=== PATIENT | male | born 1935 | race Caucasian/White ===

== ENCOUNTER 2018-05-26 20:48 | Inpatient (IN) | payer MEDICARE, OTHER ==
[2018-05-26] MEDS ORDERED: Sodium Chloride 0.9% 10 ML Syringe FLUSH PRN (20:57)
[2018-05-26 21:34] LABS: CHLORIDE,CL 105 mEq/L (98-106); SODIUM,NA 141 mEq/L (136-145)
--- NOTE | 2018-05-26 22:55 | EDM.PDOC ---
ED HPI GENERAL MEDICAL PROBLEM - General Chief Complaint: General Stated Complaint: WEAKNESS Time Seen by Provider: 05/26/18 20:49 Source of Information: Reports: Patient, Family History Limitations: Reports: No Limitations - History of Present Illness INITIAL COMMENTS - FREE TEXT/NARRATIVE: patient presents in care of family with report of LEFT arm weakness as well as generalized fatigue. 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 He denies injury, other concerns or complaints. Onset: Gradual Onset Date: 05/22/18 Location: Reports: Upper Extremity, Left Quality: Reports: Other (weak) Context: Denies: Trauma Associated Symptoms: Reports: Weakness - Related Data Allergies Allergy/AdvReac Type Severity Reaction Status Date / Time Penicillins Allergy Hives Verified 05/26/18 21:06 Home Meds: Home Meds Aspirin [Halfprin] 81 mg PO DAILY 01/05/15 [History] Cholecalciferol (Vitamin D3) [Vitamin D3] 1,000 units PO DAILY 01/05/15 [History ] Cyanocobalamin (Vitamin B-12) [Vitamin B-12] 1 tab PO Q3D 01/05/15 [History] Furosemide [Lasix] 40 mg PO BID 01/05/15 [History] Losartan Potassium 100 mg PO DAILY 01/05/15 [History] Potassium Chloride [Klor-Con 10] 10 meq PO DAILY 01/05/15 [History] cloNIDine [Catapres] 0.1 mg PO BID 01/05/15 [History] Metoprolol Tartrate [Lopressor] 50 mg PO BID 04/06/16 [History] amLODIPine Besylate [Amlodipine Besylate] 5 mg PO DAILY 04/12/17 [History] atorvaSTATin Calcium [Atorvastatin Calcium] 20 mg PO DAILY 04/12/17 [History] Rivaroxaban [Xarelto] 20 mg PO DAILY 05/26/18 [History] Past Medical History HEENT History: Reports: Cataract, Hard of Hearing, Impaired Vision Cardiovascular History: Reports: Afib, Heart Failure, High Cholesterol, SOB on Exertion Respiratory History: Reports: SOB - Past Surgical History HEENT Surgical History: Reports: Cataract Surgery, Oral Surgery, Tonsillectomy Other HEENT Surgeries/Procedures: DENTURES Musculoskeletal Surgical History: Reports: Knee Replacement, Shoulder Surgery Other Musculoskeletal Surgeries/Procedures:: RIGHT SHOULDER SURGERY Social & Family History - Family History Family Medical History: Noncontributory - Caffeine Use Caffeine Use: Reports: Coffee, Soda, Tea - Recreational Drug Use Recreational Drug Use: No ED ROS GENERAL - Review of Systems Review Of Systems: See Below Constitutional: Reports: Weakness, Fatigue. Denies: Fever, Chills, Diaphoresis HEENT: Reports: No Symptoms Respiratory: Reports: Cough. Denies: Shortness of Breath, Wheezing Cardiovascular: Denies: Chest Pain, Edema, Syncope Endocrine: Reports: Fatigue. Denies: Polydypsia, Polyuria GI/Abdominal: Denies: Abdominal Pain, Diarrhea, Nausea, Vomiting : Denies: Dysuria, Flank Pain Musculoskeletal: Reports: Other (LEFT arm weakness). Denies: Neck Pain Skin: Denies: Cyanosis Neurological: Reports: Numbness, Weakness. Denies: Confusion, Dizziness, Headache, Seizure, Tremors (LEFT hand numbness) Psychiatric: Denies: Anxiety, Confusion ED EXAM, GENERAL - Physical Exam Exam: See Below Exam Limited By: No Limitations General Appearance: Alert, WD/WN, No Apparent Distress Eye Exam: Bilateral Eye: EOMI, PERRL Ears: Normal External Exam Nose: Normal Inspection Throat/Mouth: Normal Inspection, Normal Oropharynx, Normal Voice Head: Atraumatic, Normocephalic Neck: Normal Inspection, Supple, Non-Tender, Full Range of Motion Respiratory/Chest: No Respiratory Distress, Lungs Clear, Normal Breath Sounds, No Accessory Muscle Use, Chest Non-Tender Cardiovascular: Normal Peripheral Pulses, Regular Rate, Rhythm, No Gallop, No JVD, No Murmur, No Rub Peripheral Pulses: 2+: Radial (L), Radial (R) GI/Abdominal: Normal Bowel Sounds, Soft Back Exam: Normal Inspection, Full Range of Motion Extremities: Other (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 MSK otherwise without acute findings.) Neurological: Alert, Oriented, CN II-XII Intact, Normal Cognition, Normal Gait, Normal Reflexes, Sensory/Motor Deficit, Other (LEFT arm weak. Diminished sensation in LEFT hand) Psychiatric: Normal Affect, Normal Mood Skin Exam: Warm, Dry, Intact Lymphatic: No Adenopathy Course - Vital Signs Last Recorded V/S: Last Vital Signs Temp 36.6 C 05/26/18 20:51 Pulse 52 L 05/26/18 20:51 Resp 16 05/26/18 20:51 BP 119/73 05/26/18 20:51 Pulse Ox 99 05/26/18 20:51 - Orders/Labs/Meds Orders: Active Orders 24 hr Category Date Time Status Peripheral IV Care [RC] . DIRECTED Care 05/26/18 20:59 Active Chest 2V [CR] Stat Exams 05/26/18 20:57 Taken Head wo Cont [CT] Stat Exams 05/26/18 20:57 Taken Sodium Chloride 0.9% [Saline Flush] Med 05/26/18 20:57 Active 10 ml FLUSH ASDIRECTED PRN Peripheral IV Insertion Adult [OM.PC] Routine Oth 05/26/18 20:57 Ordered Medication Orders Sodium Chloride (Saline Flush) 10 ml FLUSH ASDIRECTED PRN PRN Reason: Keep Vein Open Labs: Laboratory Tests 05/26/18 05/26/18 05/26/18 Range/Units 21:10 21:10 21:10 WBC 8.1 (5.0-10.0) 10^3/uL RBC 4.41 L (4.50-6.00) 10^6/uL Hgb 13.4 L (14.0-18.0) g/dL Hct 40.3 (40.0-54.0) % MCV 91.4 (82.0-94.0) fL MCH 30.4 (27.0-32.0) pg MCHC 33.3 (33.0-38.0) g/dL RDW Coeff of [place] 14.6 (11.0-15.0) % Plt Count 234 (150-400) 10^3/uL Neut % (Auto) 59.4 (35-85) % Lymph % (Auto) 29.2 (10-55) % [place] % (Auto) 8.2 (0-16) % Eos % (Auto) 3.0 (0-5) % Baso % (Auto) 0.2 (0-3) % Neut # (Auto) 4.78 (1.80-7.00) 10^3/uL Lymph # (Auto) 2.35 (1.00-4.80) 10^3/uL [place] # (Auto) 0.66 (0.00-0.80) 10^3/uL Eos # (Auto) 0.24 (0.00-0.45) 10^3/uL Baso # (Auto) 0.02 10^3/uL PT 11.3 (9.7-12.3) SEC INR 1.09 (0.92-1.18) Sodium 141 (136-145) mEq/L Potassium 3.4 L (3.5-5.0) mEq/L Chloride 105 (98-106) mEq/L Carbon Dioxide 29 (21-32) mmol/L BUN 20 H (7-18) mg/dL Creatinine 1.1 (0.7-1.3) mg/dL Est Cr Clr Drug Dosing 54.19 mL/min Estimated GFR (MDRD) > 60 (>=60) mL/min Glucose 134 H (75-99) mg/dL Calcium 8.5 (8.4-10.1) mg/dL Troponin I < 0.017 (0.00-0.06) ng/mL Meds: Medications Generic Name Dose Route Start Last Admin Trade Name Freq PRN Reason Stop Dose Admin Sodium Chloride 10 ml 05/26/18 20:57 Saline Flush FLUSH ASDIRECTED PRN Keep Vein Open Departure - Departure Time of Disposition: 22:56 Disposition: Admitted As Inpatient 66 Condition: Good Clinical Impression: Weakness - Discharge Information *PRESCRIPTION DRUG MONITORING PROGRAM REVIEWED*: Not Applicable *COPY OF PRESCRIPTION DRUG MONITORING REPORT IN PATIENT ROX: Not Applicable - Problem List Review Problem List Initiated/Reviewed/Updated: Yes - My Orders Last 24 Hours: My Active Orders 05/26/18 20:57 Chest 2V [CR] Stat Head wo Cont [CT] Stat Sodium Chloride 0.9% [Saline Flush] 10 ml FLUSH ASDIRECTED PRN Peripheral IV Insertion Adult [OM.PC] Routine 05/26/18 20:59 Peripheral IV Care [RC] . DIRECTED - Assessment/Plan Admission H&P: Please use this note as an admission H&P Last 24 Hours: My Active Orders 05/26/18 20:57 Chest 2V [CR] Stat Head wo Cont [CT] Stat Sodium Chloride 0.9% [Saline Flush] 10 ml FLUSH ASDIRECTED PRN Peripheral IV Insertion Adult [OM.PC] Routine 05/26/18 20:59 Peripheral IV Care [RC] . DIRECTED Assessment:: Weakness Unclear etiology. CT of the head negative for acute pathology. Labs grossly WNL. EKG unchanged from previous. Will admit to observation for neuro checks and repeat exam. 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
[2018-05-26] MEDS ORDERED: Ondansetron 4 MG Tab.DIS PO PRN (23:35)
[2018-05-26] MEDS ORDERED: Acetaminophen/HYDROcodone 325-5 MG Tab PO PRN (23:35)
[2018-05-26] MEDS ORDERED: Acetaminophen 325 MG Tab PO PRN (23:35)
[2018-05-27] MEDS ORDERED: CLONIDINE 0.1 MG PO SCH (08:00)
[2018-05-27] MEDS ORDERED: amLODIPine 2.5 MG Tab PO SCH (08:00)
[2018-05-27] MEDS ORDERED: Non-Formulary Medication 1 Each (Rivaroxaban [Xarelto] 20 MG) PO SCH (08:00)
[2018-05-27] MEDS ORDERED: Cephalexin 250 MG Cap PO SCH (08:00)
[2018-05-27] MEDS: **PTOM** Losartan 100 MG Tab PO SCH (09:20)
[2018-05-27] MEDS: **PTOM** Furosemide 40 MG Tab PO SCH ×2 (09:20→15:52)
[2018-05-27] MEDS: **PTOM** Metoprolol Tartrate 50 MG Tab PO SCH ×2 (09:21→20:31)
[2018-05-27] MEDS: AMLODIPINE 5 MG PO SCH (09:21)
[2018-05-27] MEDS: CYANOCOBALAMIN 500 MCG PO SCH (09:21)
[2018-05-27] MEDS: Apixaban 5 MG Tab PO SCH (09:26)
[2018-05-27] MEDS: atorvaSTATin 20 MG Tab PO SCH (09:27)
[2018-05-27] MEDS: Aspirin 81 MG Tab.EC PO SCH (09:27)
[2018-05-27] MEDS: Cholecalciferol (Vitamin D3) 1,000 Unit Tab PO SCH (09:28)
[2018-05-27] MEDS: Potassium Chloride 10 MEQ Tab.ER PO SCH (09:28)
[2018-05-27] MEDS: cefTRIAXone 1 GM Vial IVPUSH SCH (09:43)
--- NOTE | 2018-05-27 17:40 | PCM.PN ---
- General Info Date of Service: 05/27/18 Admission Dx/Problem (Free Text): Weakness Functional Status: Reports: Pain Controlled, Tolerating Diet. Denies: Ambulating - Review of Systems General: Reports: Weakness, Fatigue. Denies: Fever HEENT: Reports: No Symptoms Pulmonary: Denies: Shortness of Breath, Cough Cardiovascular: Denies: Chest Pain, Edema, Lightheadedness Gastrointestinal: Denies: Abdominal Pain, Nausea, Vomiting Genitourinary: Denies: Dysuria Musculoskeletal: Reports: No Symptoms Skin: Reports: No Symptoms Neurological: Reports: Weakness. Denies: Confusion, Dizziness, Headache, Change in Speech, Gait Disturbance - Patient Data Vitals - Most Recent: Last Vital Signs Temp 96.4 F 05/27/18 16:00 Pulse 61 05/27/18 16:00 Resp 20 05/27/18 16:00 BP 150/92 H 05/27/18 16:00 Pulse Ox 97 05/27/18 16:00 Weight - Most Recent: 251 lb 5.231 oz Lab Results Last 24 Hours: Laboratory Results - last 24 hr 05/26/18 05/26/18 05/26/18 Range/Units 21:10 21:10 21:10 WBC 8.1 (5.0-10.0) 10^3/uL RBC 4.41 L (4.50-6.00) 10^6/uL Hgb 13.4 L (14.0-18.0) g/dL Hct 40.3 (40.0-54.0) % MCV 91.4 (82.0-94.0) fL MCH 30.4 (27.0-32.0) pg MCHC 33.3 (33.0-38.0) g/dL RDW Coeff of [place] 14.6 (11.0-15.0) % Plt Count 234 (150-400) 10^3/uL Neut % (Auto) 59.4 (35-85) % Lymph % (Auto) 29.2 (10-55) % [place] % (Auto) 8.2 (0-16) % Eos % (Auto) 3.0 (0-5) % Baso % (Auto) 0.2 (0-3) % Neut # (Auto) 4.78 (1.80-7.00) 10^3/uL Lymph # (Auto) 2.35 (1.00-4.80) 10^3/uL [place] # (Auto) 0.66 (0.00-0.80) 10^3/uL Eos # (Auto) 0.24 (0.00-0.45) 10^3/uL Baso # (Auto) 0.02 10^3/uL PT 11.3 (9.7-12.3) SEC INR 1.09 (0.92-1.18) Sodium 141 (136-145) mEq/L Potassium 3.4 L (3.5-5.0) mEq/L Chloride 105 (98-106) mEq/L Carbon Dioxide 29 (21-32) mmol/L BUN 20 H (7-18) mg/dL Creatinine 1.1 (0.7-1.3) mg/dL Est Cr Clr Drug Dosing 54.19 mL/min Estimated GFR (MDRD) > 60 (>=60) mL/min Glucose 134 H (75-99) mg/dL Calcium 8.5 (8.4-10.1) mg/dL Troponin I < 0.017 (0.00-0.06) ng/mL Urine Color (YELLOW) Urine Appearance (CLEAR) Urine pH (4.5-8.0) Ur Specific [place] (1.003-1.020) Urine Protein (NEGATIVE) mg/dL Urine Glucose (UA) (NEGATIVE) mg/dL Urine Ketones (NEGATIVE) mg/dL Urine Occult Blood (NEGATIVE) Urine Nitrite (NEGATIVE) Urine Bilirubin (NEGATIVE) Urine Urobilinogen (0.2-1.0) EU/dL Ur Leukocyte Esterase (NEGATIVE) Urine RBC (0-5) /HPF Urine WBC (0-5) /HPF Urine Bacteria (NOT SEEN) /HPF 05/27/18 Range/Units 03:10 WBC (5.0-10.0) 10^3/uL RBC (4.50-6.00) 10^6/uL Hgb (14.0-18.0) g/dL Hct (40.0-54.0) % MCV (82.0-94.0) fL MCH (27.0-32.0) pg MCHC (33.0-38.0) g/dL RDW Coeff of [place] (11.0-15.0) % Plt Count (150-400) 10^3/uL Neut % (Auto) (35-85) % Lymph % (Auto) (10-55) % [place] % (Auto) (0-16) % Eos % (Auto) (0-5) % Baso % (Auto) (0-3) % Neut # (Auto) (1.80-7.00) 10^3/uL Lymph # (Auto) (1.00-4.80) 10^3/uL [place] # (Auto) (0.00-0.80) 10^3/uL Eos # (Auto) (0.00-0.45) 10^3/uL Baso # (Auto) 10^3/uL PT (9.7-12.3) SEC INR (0.92-1.18) Sodium (136-145) mEq/L Potassium (3.5-5.0) mEq/L Chloride (98-106) mEq/L Carbon Dioxide (21-32) mmol/L BUN (7-18) mg/dL Creatinine (0.7-1.3) mg/dL Est Cr Clr Drug Dosing mL/min Estimated GFR (MDRD) (>=60) mL/min Glucose (75-99) mg/dL Calcium (8.4-10.1) mg/dL Troponin I (0.00-0.06) ng/mL Urine Color Yellow (YELLOW) Urine Appearance Cloudy (CLEAR) Urine pH 5.5 (4.5-8.0) Ur Specific [place] 1.015 (1.003-1.020) Urine Protein Negative (NEGATIVE) mg/dL Urine Glucose (UA) Negative (NEGATIVE) mg/dL Urine Ketones Negative (NEGATIVE) mg/dL Urine Occult Blood Trace-intact H (NEGATIVE) Urine Nitrite Positive H (NEGATIVE) Urine Bilirubin Negative (NEGATIVE) Urine Urobilinogen 0.2 (0.2-1.0) EU/dL Ur Leukocyte Esterase Moderate H (NEGATIVE) Urine RBC 0-5 (0-5) /HPF Urine WBC 30-40 H (0-5) /HPF Urine Bacteria Few H (NOT SEEN) /HPF Med Orders - Current: Current Medications Acetaminophen (Tylenol) 650 mg PO Q4H PRN PRN Reason: Pain (Mild 1-3)/fever Hydrocodone Bitart/Acetaminophen ([place] 325-5 Mg) 1 tab PO Q4H PRN PRN Reason: Pain (moderate 4-6) Apixaban (Eliquis) 5 mg PO DAILY [facility] Last Admin: 05/27/18 09:26 Dose: 5 mg Aspirin (Halfprin) 81 mg PO DAILY [facility] Last Admin: 05/27/18 09:27 Dose: 81 mg Atorvastatin Calcium (Lipitor) 20 mg PO DAILY [facility] Last Admin: 05/27/18 09:27 Dose: 20 mg Ceftriaxone Sodium (Rocephin) 1 gm IVPUSH DAILY [facility] Last Admin: 05/27/18 09:43 Dose: 1 gm Cholecalciferol (Vitamin D3) 1,000 units PO DAILY [facility] Last Admin: 05/27/18 09:28 Dose: 1,000 units Furosemide (Lasix) 40 mg PO BIDDIURETIC [facility] Last Admin: 05/27/18 15:52 Dose: 40 mg Losartan Potassium (Cozaar) 100 mg PO DAILY [facility] Last Admin: 05/27/18 09:20 Dose: 100 mg Metoprolol Tartrate (Lopressor) 50 mg PO BID [facility] Last Admin: 05/27/18 09:21 Dose: 50 mg Ptom Cyanocobalamin ( Vitamin B-12) 500 Mcg 1 tab PO Q3D [facility] Last Admin: 05/27/18 09:21 Dose: 1 tab Ptom Amlodipine (5mg Tab) 5 mg PO DAILY [facility] Last Admin: 05/27/18 09:21 Dose: 5 mg Ondansetron HCl (Zofran Odt) 4 mg PO Q4H PRN PRN Reason: nausea, able to take PO Potassium Chloride (Klor-Con 10) 10 meq PO DAILY [facility] Last Admin: 05/27/18 09:28 Dose: 10 meq Sodium Chloride (Saline Flush) 10 ml FLUSH ASDIRECTED PRN PRN Reason: Keep Vein Open Discontinued Medications Amlodipine Besylate (Norvasc) 5 mg PO DAILY [facility] Last Admin: 05/27/18 09:49 Dose: Not Given Cephalexin (Keflex) 500 mg PO BID [facility] Stop: 05/31/18 23:59 Last Admin: 05/27/18 09:49 Dose: Not Given Clonidine HCl (Catapres) 0.1 mg PO BID [facility] Last Admin: 05/27/18 09:49 Dose: Not Given Non-Formulary Medication (Rivaroxaban [Xarelto]) 20 mg PO DAILY [facility] Last Admin: 05/27/18 09:49 Dose: Not Given - Exam General: Alert, Oriented HEENT: Mucous Membr. Moist/[place] Neck: Supple Lungs: Clear to Auscultation, Normal Respiratory Effort Cardiovascular: Regular Rate, Regular Rhythm GI/Abdominal Exam: Normal Bowel Sounds, Soft, Non-Tender Extremities: Normal Inspection, Pedal Edema (trace in lower extremities) Skin: Warm, Dry Neurological: Other (patient is alert, answers questions appropriately. Speech is clear. Left arm is weak. Legs have equal strength. ) - Problem List & Annotations (1) UTI (urinary tract infection) SNOMED Code(s): 61419534 Code(s): N39.0 - URINARY TRACT INFECTION, SITE NOT SPECIFIED Status: Acute Priority: High Current Visit: Yes (2) Weakness SNOMED Code(s): 97125615 Code(s): R53.1 - WEAKNESS Status: Acute Priority: High Current Visit: Yes - Problem List Review Problem List Initiated/Reviewed/Updated: Yes - My Orders Last 24 Hours: My Active Orders 05/27/18 09:15 Apixaban [Eliquis] 5 mg PO DAILY cefTRIAXone [Rocephin] 1 gm IVPUSH DAILY 05/27/18 09:37 Brain wo Cont [MR] Routine - Assessment Assessment:: Weakness UTI - Plan Plan:: Patient states feels arm is stronger than yesterday but for being is dominant arm, still notes weakness. He answers all questions appropriately. Gait is unchanged. Denies burning with urination. UA positive, had been started on Keflex yesterday. Also noted in meds, had stopped taking his Xarelto and Atorvastatin, questions if taking Clonidine as in his med pack although medicine was discontinued in March. Patient unsure of any of his meds when asked. CT scan in ER was negative. Labs relatively stable except UA. Will switch oral Keflex to Rocephin. Start Eliquis while here. Hold the Clonidine. Obtain MRI tomorrow. Repeat labs in am.
[2018-05-28 07:29] LABS: CHLORIDE,CL 106 mEq/L (98-106); SODIUM,NA 144 mEq/L (136-145)
[2018-05-28] MEDS: **PTOM** Metoprolol Tartrate 50 MG Tab PO SCH ×2 (08:18→19:48)
[2018-05-28] MEDS: **PTOM** Furosemide 40 MG Tab PO SCH ×2 (08:19→16:50)
[2018-05-28] MEDS: AMLODIPINE 5 MG PO SCH (08:19)
[2018-05-28] MEDS: **PTOM** Losartan 100 MG Tab PO SCH (08:20)
[2018-05-28] MEDS: cefTRIAXone 1 GM Vial IVPUSH SCH (08:35)
[2018-05-28] MEDS: Aspirin 81 MG Tab.EC PO SCH (08:36)
[2018-05-28] MEDS: Apixaban 5 MG Tab PO SCH (08:36)
[2018-05-28] MEDS: Potassium Chloride 10 MEQ Tab.ER PO SCH (08:36)
[2018-05-28] MEDS: atorvaSTATin 20 MG Tab PO SCH (08:36)
[2018-05-28] MEDS: Cholecalciferol (Vitamin D3) 1,000 Unit Tab PO SCH (08:36)
--- NOTE | 2018-05-28 09:07 | PCM.PN ---
- General Info Date of Service: 05/28/18 Admission Dx/Problem (Free Text): Weakness Functional Status: Reports: Pain Controlled, Tolerating Diet, Ambulating - Review of Systems General: Reports: Weakness. Denies: Fever HEENT: Reports: No Symptoms Pulmonary: Denies: Shortness of Breath, Cough Cardiovascular: Denies: Chest Pain, Edema, Lightheadedness Gastrointestinal: Denies: Abdominal Pain, Nausea, Vomiting Genitourinary: Reports: No Symptoms Musculoskeletal: Reports: No Symptoms Skin: Reports: No Symptoms Neurological: Reports: Weakness, Gait Disturbance (unsteady gait) - Patient Data Vitals - Most Recent: Last Vital Signs Temp 97.6 F 05/28/18 07:26 Pulse 66 05/28/18 08:18 Resp 20 05/28/18 07:26 BP 146/86 H 05/28/18 08:20 Pulse Ox 96 05/28/18 07:26 Weight - Most Recent: 251 lb 5.231 oz Lab Results Last 24 Hours: Laboratory Results - last 24 hr 05/28/18 05/28/18 Range/Units 06:55 06:55 WBC 9.4 (5.0-10.0) 10^3/uL RBC 4.55 (4.50-6.00) 10^6/uL Hgb 13.8 L (14.0-18.0) g/dL Hct 41.7 (40.0-54.0) % MCV 91.6 (82.0-94.0) fL MCH 30.3 (27.0-32.0) pg MCHC 33.1 (33.0-38.0) g/dL RDW Coeff of [place] 14.4 (11.0-15.0) % Plt Count 254 (150-400) 10^3/uL Neut % (Auto) 56.8 (35-85) % Lymph % (Auto) 30.1 (10-55) % [place] % (Auto) 9.7 (0-16) % Eos % (Auto) 3.2 (0-5) % Baso % (Auto) 0.2 (0-3) % Neut # (Auto) 5.35 (1.80-7.00) 10^3/uL Lymph # (Auto) 2.84 (1.00-4.80) 10^3/uL [place] # (Auto) 0.91 H (0.00-0.80) 10^3/uL Eos # (Auto) 0.30 (0.00-0.45) 10^3/uL Baso # (Auto) 0.02 10^3/uL Sodium 144 (136-145) mEq/L Potassium 3.2 L (3.5-5.0) mEq/L Chloride 106 (98-106) mEq/L Carbon Dioxide 31 (21-32) mmol/L BUN 15 (7-18) mg/dL Creatinine 1.1 (0.7-1.3) mg/dL Est Cr Clr Drug Dosing 54.19 mL/min Estimated GFR (MDRD) > 60 (>=60) mL/min Glucose 104 H (75-99) mg/dL Calcium 8.5 (8.4-10.1) mg/dL C-Reactive Protein 0.9 H (0.2-0.8) mg/dL Med Orders - Current: Current Medications Acetaminophen (Tylenol) 650 mg PO Q4H PRN PRN Reason: Pain (Mild 1-3)/fever Hydrocodone Bitart/Acetaminophen ([place] 325-5 Mg) 1 tab PO Q4H PRN PRN Reason: Pain (moderate 4-6) Apixaban (Eliquis) 5 mg PO DAILY [facility] Last Admin: 05/28/18 08:36 Dose: 5 mg Aspirin (Halfprin) 81 mg PO DAILY [facility] Last Admin: 05/28/18 08:36 Dose: 81 mg Atorvastatin Calcium (Lipitor) 20 mg PO DAILY [facility] Last Admin: 05/28/18 08:36 Dose: 20 mg Ceftriaxone Sodium (Rocephin) 1 gm IVPUSH DAILY [facility] Last Admin: 05/28/18 08:35 Dose: 1 gm Cholecalciferol (Vitamin D3) 1,000 units PO DAILY [facility] Last Admin: 05/28/18 08:36 Dose: 1,000 units Furosemide (Lasix) 40 mg PO BIDDIURETIC [facility] Last Admin: 05/28/18 08:19 Dose: 40 mg Losartan Potassium (Cozaar) 100 mg PO DAILY [facility] Last Admin: 05/28/18 08:20 Dose: 100 mg Metoprolol Tartrate (Lopressor) 50 mg PO BID [facility] Last Admin: 05/28/18 08:18 Dose: 50 mg Ptom Cyanocobalamin ( Vitamin B-12) 500 Mcg 1 tab PO Q3D [facility] Last Admin: 05/27/18 09:21 Dose: 1 tab Ptom Amlodipine (5mg Tab) 5 mg PO DAILY [facility] Last Admin: 05/28/18 08:19 Dose: 5 mg Ondansetron HCl (Zofran Odt) 4 mg PO Q4H PRN PRN Reason: nausea, able to take PO Potassium Chloride (Klor-Con 10) 10 meq PO DAILY [facility] Last Admin: 05/28/18 08:36 Dose: 10 meq Sodium Chloride (Saline Flush) 10 ml FLUSH ASDIRECTED PRN PRN Reason: Keep Vein Open Discontinued Medications Amlodipine Besylate (Norvasc) 5 mg PO DAILY [facility] Last Admin: 05/27/18 09:49 Dose: Not Given Cephalexin (Keflex) 500 mg PO BID [facility] Stop: 05/31/18 23:59 Last Admin: 05/27/18 09:49 Dose: Not Given Clonidine HCl (Catapres) 0.1 mg PO BID [facility] Last Admin: 05/27/18 09:49 Dose: Not Given Non-Formulary Medication (Rivaroxaban [Xarelto]) 20 mg PO DAILY [facility] Last Admin: 05/27/18 09:49 Dose: Not Given - Exam General: Alert, Oriented HEENT: Mucous Membr. Moist/[place] Neck: Supple Lungs: Clear to Auscultation, Normal Respiratory Effort Cardiovascular: Regular Rate, Regular Rhythm GI/Abdominal Exam: Normal Bowel Sounds, Soft, Non-Tender Extremities: Normal Inspection, Other (weakness in left arm, decreased palmar grasp) Skin: Warm, Dry Neurological: No: Normal Gait, Strength Equal Bilateral - Problem List & Annotations (1) UTI (urinary tract infection) SNOMED Code(s): 31180361 Code(s): N39.0 - URINARY TRACT INFECTION, SITE NOT SPECIFIED Status: Acute Priority: High Current Visit: Yes (2) Weakness SNOMED Code(s): 13510707 Code(s): R53.1 - WEAKNESS Status: Acute Priority: High Current Visit: Yes (3) CVA (cerebral vascular accident) SNOMED Code(s): 085454199 Code(s): I63.9 - CEREBRAL INFARCTION, UNSPECIFIED Status: Acute Priority : High Current Visit: Yes - Problem List Review Problem List Initiated/Reviewed/Updated: Yes - My Orders Last 24 Hours: My Active Orders 05/27/18 09:15 Apixaban [Eliquis] 5 mg PO DAILY cefTRIAXone [Rocephin] 1 gm IVPUSH DAILY 05/28/18 09:00 Consult to Physical Therapy [PT Evaluation and Treatment] [CONS] Routine 05/28/18 09:37 Brain wo Cont [MR] Routine - Assessment Assessment:: Weakness UTI - Plan Plan:: Patient states feels arm is stronger than yesterday but for being is dominant arm, still notes weakness. He answers all questions appropriately. Gait is unchanged. Denies burning with urination. UA positive, had been started on Keflex yesterday. Also noted in meds, had stopped taking his Xarelto and Atorvastatin, questions if taking Clonidine as in his med pack although medicine was discontinued in March. Patient unsure of any of his meds when asked. CT scan in ER was negative. Labs relatively stable except UA. Will switch oral Keflex to Rocephin. Start Eliquis while here. Hold the Clonidine. Obtain MRI tomorrow. Repeat labs in am. 05-28-2018 Patient feels good today, left arm does still remain weak. Is using it more today per patient. Staff reports balance is unsteady when ambulating short distances. Denies dysphagia. No abdominal pain or burning with urination. Vitals stable. Potassium low at 3.2 today, CRP 0.9, WBC within normal limits at 9.4. Will transfer to acute inpatient for CVA. Continue Rocephin for UTI. PT to consult for strengthening and balance. MRI today.
[2018-05-29] MEDS: Apixaban 5 MG Tab PO SCH (07:47)
[2018-05-29] MEDS: **PTOM** Losartan 100 MG Tab PO SCH (07:47)
[2018-05-29] MEDS: Potassium Chloride 10 MEQ Tab.ER PO SCH (07:47)
[2018-05-29] MEDS: Aspirin 81 MG Tab.EC PO SCH (07:47)
[2018-05-29] MEDS: **PTOM** Metoprolol Tartrate 50 MG Tab PO SCH ×2 (07:48→19:46)
[2018-05-29] MEDS: **PTOM** Furosemide 40 MG Tab PO SCH ×2 (07:48→15:56)
[2018-05-29] MEDS: atorvaSTATin 20 MG Tab PO SCH (07:48)
[2018-05-29] MEDS: Cholecalciferol (Vitamin D3) 1,000 Unit Tab PO SCH (07:49)
[2018-05-29] MEDS: cefTRIAXone 1 GM Vial IVPUSH SCH (07:49)
[2018-05-29] MEDS: AMLODIPINE 5 MG PO SCH (07:58)
[2018-05-29] MEDS ORDERED: Iopamidol 755 Mg/ML 100 ML Bottle IVPUSH ONE (11:56)
[2018-05-29] MEDS: Ciprofloxacin 0.3% Ophth Soln 5 ML Bottle EYERT SCH ×2 (13:28→19:46)
--- NOTE | 2018-05-29 17:12 | PCM.PN ---
- General Info Date of Service: 05/29/18 Admission Dx/Problem (Free Text): Weakness Functional Status: Reports: Pain Controlled, Tolerating Diet, Ambulating - Review of Systems General: Reports: Weakness. Denies: Fever HEENT: Reports: No Symptoms Pulmonary: Denies: Shortness of Breath, Cough Cardiovascular: Denies: Chest Pain, Lightheadedness Gastrointestinal: Denies: Abdominal Pain, Nausea, Vomiting Genitourinary: Reports: No Symptoms Musculoskeletal: Reports: No Symptoms Skin: Reports: No Symptoms Neurological: Reports: No Symptoms - Patient Data Vitals - Most Recent: Last Vital Signs Temp 98.2 F 05/29/18 15:46 Pulse 70 05/29/18 15:46 Resp 18 05/29/18 15:46 BP 126/83 05/29/18 15:46 Pulse Ox 97 05/29/18 15:46 Weight - Most Recent: 251 lb 5.231 oz Conor Results Last 24 Hours: Microbiology 05/27/18 03:10 Urine Culture - Final Urine, Voided Med Orders - Current: Current Medications Acetaminophen (Tylenol) 650 mg PO Q4H PRN PRN Reason: Pain (Mild 1-3)/fever Hydrocodone Bitart/Acetaminophen ([place] 325-5 Mg) 1 tab PO Q4H PRN PRN Reason: Pain (moderate 4-6) Apixaban (Eliquis) 5 mg PO DAILY [facility] Last Admin: 05/29/18 07:47 Dose: 5 mg Aspirin (Halfprin) 81 mg PO DAILY [facility] Last Admin: 05/29/18 07:47 Dose: 81 mg Atorvastatin Calcium (Lipitor) 20 mg PO DAILY [facility] Last Admin: 05/29/18 07:48 Dose: 20 mg Ceftriaxone Sodium (Rocephin) 1 gm IVPUSH DAILY [facility] Last Admin: 05/29/18 07:49 Dose: 1 gm Cholecalciferol (Vitamin D3) 1,000 units PO DAILY [facility] Last Admin: 05/29/18 07:49 Dose: 1,000 units Ciprofloxacin (Ciloxan 0.3% Ophth Soln) 0 ml EYERT TID [facility] Last Admin: 05/29/18 13:28 Dose: 3 drop Furosemide (Lasix) 40 mg PO BIDDIURETIC [facility] Last Admin: 05/29/18 15:56 Dose: 40 mg Losartan Potassium (Cozaar) 100 mg PO DAILY [facility] Last Admin: 05/29/18 07:47 Dose: 100 mg Metoprolol Tartrate (Lopressor) 50 mg PO BID [facility] Last Admin: 05/29/18 07:48 Dose: 50 mg Ptom Cyanocobalamin ( Vitamin B-12) 500 Mcg 1 tab PO Q3D [facility] Last Admin: 05/27/18 09:21 Dose: 1 tab Ptom Amlodipine (5mg Tab) 5 mg PO DAILY [facility] Last Admin: 05/29/18 07:58 Dose: 5 mg Ondansetron HCl (Zofran Odt) 4 mg PO Q4H PRN PRN Reason: nausea, able to take PO Potassium Chloride (Klor-Con 10) 10 meq PO DAILY [facility] Last Admin: 05/29/18 07:47 Dose: 10 meq Sodium Chloride (Saline Flush) 10 ml FLUSH ASDIRECTED PRN PRN Reason: Keep Vein Open Discontinued Medications Amlodipine Besylate (Norvasc) 5 mg PO DAILY [facility] Last Admin: 05/27/18 09:49 Dose: Not Given Cephalexin (Keflex) 500 mg PO BID [facility] Stop: 05/31/18 23:59 Last Admin: 05/27/18 09:49 Dose: Not Given Clonidine HCl (Catapres) 0.1 mg PO BID [facility] Last Admin: 05/27/18 09:49 Dose: Not Given Iopamidol (Isovue-370 (76%)) 100 ml IVPUSH ONETIME ONE Stop: 05/29/18 11:57 Last Admin: 05/29/18 15:08 Dose: Not Given Non-Formulary Medication (Rivaroxaban [Xarelto]) 20 mg PO DAILY [facility] Last Admin: 05/27/18 09:49 Dose: Not Given - Exam General: Alert, Oriented HEENT: Mucous Membr. Moist/[place] Neck: Supple Lungs: Clear to Auscultation, Normal Respiratory Effort Cardiovascular: Regular Rate, Regular Rhythm GI/Abdominal Exam: Normal Bowel Sounds, Soft, Non-Tender Extremities: Normal Inspection, Other (weakness yet remains in left arm. Is ambulating with walker today with PT, does well.) Skin: Warm, Dry Neurological: No New Focal Deficit - Problem List & Annotations (1) UTI (urinary tract infection) SNOMED Code(s): 49551501 Code(s): N39.0 - URINARY TRACT INFECTION, SITE NOT SPECIFIED Status: Acute Priority: High Current Visit: Yes (2) Weakness SNOMED Code(s): 33486696 Code(s): R53.1 - WEAKNESS Status: Acute Priority: High Current Visit: Yes (3) CVA (cerebral vascular accident) SNOMED Code(s): 717922380 Code(s): I63.9 - CEREBRAL INFARCTION, UNSPECIFIED Status: Acute Priority : High Current Visit: Yes Qualifiers: CVA mechanism: embolism Precerebral and cerebral artery: basilar artery 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 He answers all questions appropriately. Gait is unchanged. Denies burning with urination. UA positive, had been started on Keflex yesterday. Also noted in meds, had stopped taking his Xarelto and Atorvastatin, questions if taking Clonidine as in his med pack although medicine was discontinued in March. Patient unsure of any of his meds when asked. CT scan in ER was negative. Labs relatively stable except UA. Will switch oral Keflex to Rocephin. Start Eliquis while here. Hold the Clonidine. Obtain MRI tomorrow. Repeat labs in am. 05-28-2018 Patient feels good today, left arm does still remain weak. Is using it more today per patient. Staff reports balance is unsteady when ambulating short distances. Denies dysphagia. No abdominal pain or burning with urination. Vitals stable. Potassium low at 3.2 today, CRP 0.9, WBC within normal limits at 9.4. Will transfer to acute inpatient for CVA. Continue Rocephin for UTI. PT to consult for strengthening and balance. MRI today. 05-29-2018 Patient feels good, is using his left arm but still weaker by exam. Ambulating with walker with PT and staff, still unsteady without assist. Labs stable. Denies nausea/pain/burning with urination. 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 Will proceed with CTA of the head and neck. Continue with Eliquis. Rocephin for UTI. Reevaluate in am.
[2018-05-30] MEDS: AMLODIPINE 5 MG PO SCH (07:35)
[2018-05-30] MEDS: **PTOM** Losartan 100 MG Tab PO SCH (07:36)
[2018-05-30] MEDS: Aspirin 81 MG Tab.EC PO SCH (07:36)
[2018-05-30] MEDS: atorvaSTATin 20 MG Tab PO SCH (07:36)
[2018-05-30] MEDS: Ciprofloxacin 0.3% Ophth Soln 5 ML Bottle EYERT SCH ×3 (07:36→19:33)
[2018-05-30] MEDS: Potassium Chloride 10 MEQ Tab.ER PO SCH (07:37)
[2018-05-30] MEDS: Cholecalciferol (Vitamin D3) 1,000 Unit Tab PO SCH (07:37)
[2018-05-30] MEDS: Apixaban 5 MG Tab PO SCH (07:37)
[2018-05-30] MEDS: **PTOM** Furosemide 40 MG Tab PO SCH ×2 (07:37→16:16)
[2018-05-30] MEDS: cefTRIAXone 1 GM Vial IVPUSH SCH (07:37)
[2018-05-30] MEDS: CYANOCOBALAMIN 500 MCG PO SCH (07:39)
[2018-05-30] MEDS: **PTOM** Metoprolol Tartrate 50 MG Tab PO SCH ×2 (07:48→19:30)
--- NOTE | 2018-05-30 09:20 | PCM.PN ---
- General Info Date of Service: 05/30/18 Admission Dx/Problem (Free Text): Weakness Functional Status: Reports: Pain Controlled, Tolerating Diet, Ambulating (with standby assist and walker) - Review of Systems General: Reports: Weakness, Fatigue HEENT: Reports: No Symptoms Pulmonary: Denies: Shortness of Breath, Cough, Wheezing Cardiovascular: Denies: Chest Pain, Edema, Lightheadedness Gastrointestinal: Denies: Abdominal Pain, Nausea, Vomiting Genitourinary: Reports: No Symptoms Musculoskeletal: Reports: No Symptoms Neurological: Reports: Weakness, Gait Disturbance (balance issues reported by staff/PT) - Patient Data Vitals - Most Recent: Last Vital Signs Temp 97.6 F 05/30/18 08:00 Pulse 80 05/30/18 08:00 Resp 18 05/30/18 08:00 BP 134/76 05/30/18 08:00 Pulse Ox 96 05/30/18 08:00 Weight - Most Recent: 251 lb 5.231 oz Conor Results Last 24 Hours: Microbiology 05/27/18 03:10 Urine Culture - Final Urine, Voided Med Orders - Current: Current Medications Acetaminophen (Tylenol) 650 mg PO Q4H PRN PRN Reason: Pain (Mild 1-3)/fever Hydrocodone Bitart/Acetaminophen ([place] 325-5 Mg) 1 tab PO Q4H PRN PRN Reason: Pain (moderate 4-6) Amlodipine Besylate (Norvasc) 5 mg PO DAILY [facility] Apixaban (Eliquis) 5 mg PO DAILY [facility] Last Admin: 05/30/18 07:37 Dose: 5 mg Aspirin (Halfprin) 81 mg PO DAILY [facility] Last Admin: 05/30/18 07:36 Dose: 81 mg Atorvastatin Calcium (Lipitor) 20 mg PO DAILY [facility] Last Admin: 05/30/18 07:36 Dose: 20 mg Ceftriaxone Sodium (Rocephin) 1 gm IVPUSH DAILY [facility] Last Admin: 05/30/18 07:37 Dose: 1 gm Cholecalciferol (Vitamin D3) 1,000 units PO DAILY [facility] Last Admin: 05/30/18 07:37 Dose: 1,000 units Ciprofloxacin (Ciloxan 0.3% Ophth Soln) 0 ml EYERT TID [facility] Last Admin: 05/30/18 07:36 Dose: 3 drop Furosemide (Lasix) 40 mg PO BIDDIURETIC [facility] Last Admin: 05/30/18 07:37 Dose: 40 mg Losartan Potassium (Cozaar) 100 mg PO DAILY [facility] Last Admin: 05/30/18 07:36 Dose: 100 mg Metoprolol Tartrate (Lopressor) 50 mg PO BID [facility] Last Admin: 05/30/18 07:48 Dose: 50 mg Ptom Cyanocobalamin ( Vitamin B-12) 500 Mcg 1 tab PO Q3D [facility] Last Admin: 05/30/18 07:39 Dose: 1 tab Ondansetron HCl (Zofran Odt) 4 mg PO Q4H PRN PRN Reason: nausea, able to take PO Potassium Chloride (Klor-Con 10) 10 meq PO DAILY [facility] Last Admin: 05/30/18 07:37 Dose: 10 meq Sodium Chloride (Saline Flush) 10 ml FLUSH ASDIRECTED PRN PRN Reason: Keep Vein Open Discontinued Medications Amlodipine Besylate (Norvasc) 5 mg PO DAILY [facility] Last Admin: 05/27/18 09:49 Dose: Not Given Cephalexin (Keflex) 500 mg PO BID [facility] Stop: 05/31/18 23:59 Last Admin: 05/27/18 09:49 Dose: Not Given Clonidine HCl (Catapres) 0.1 mg PO BID [facility] Last Admin: 05/27/18 09:49 Dose: Not Given Iopamidol (Isovue-370 (76%)) 100 ml IVPUSH ONETIME ONE Stop: 05/29/18 11:57 Last Admin: 05/29/18 15:08 Dose: Not Given Non-Formulary Medication (Rivaroxaban [Xarelto]) 20 mg PO DAILY [facility] Last Admin: 05/27/18 09:49 Dose: Not Given Ptom Amlodipine (5mg Tab) 5 mg PO DAILY [facility] Last Admin: 05/30/18 07:35 Dose: 5 mg - Exam General: Alert, Oriented HEENT: Mucous Membr. Moist/[place] Neck: Supple Lungs: Clear to Auscultation, Normal Respiratory Effort Cardiovascular: Regular Rate, Regular Rhythm GI/Abdominal Exam: Normal Bowel Sounds, Soft, Non-Tender Extremities: Normal Inspection, No Pedal Edema Skin: Warm, Dry Neurological: Other (left arm weakness still present) - Problem List & Annotations (1) CVA (cerebral vascular accident) SNOMED Code(s): 668364972 Code(s): I63.9 - CEREBRAL INFARCTION, UNSPECIFIED Status: Acute Priority : High Current Visit: Yes Qualifiers: CVA mechanism: embolism Precerebral and cerebral artery: basilar artery Qualified Code(s): 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 (2) UTI (urinary tract infection) SNOMED Code(s): 91605981 Code(s): N39.0 - URINARY TRACT INFECTION, SITE NOT SPECIFIED Status: Acute Priority: High Current Visit: Yes (3) Weakness SNOMED Code(s): 59011520 Code(s): R53.1 - WEAKNESS Status: Acute Priority: High Current Visit: Yes - Problem List Review Problem List Initiated/Reviewed/Updated: Yes - My Orders Last 24 Hours: My Active Orders 05/29/18 11:48 Ang Head [CT] Routine Ang Neck [CT] Routine 05/29/18 14:00 Ciprofloxacin [Ciloxan 0.3% Ophth Soln] See Dose Instructions EYERT TID 05/31/18 05:11 BASIC METABOLIC PANEL,BMP [CHEM] AM - Assessment Assessment:: Weakness UTI - Plan Plan:: Patient states feels arm is stronger than yesterday but for being is dominant arm, still notes weakness. He answers all questions appropriately. Gait is unchanged. Denies burning with urination. UA positive, had been started on Keflex yesterday. Also noted in meds, had stopped taking his Xarelto and Atorvastatin, questions if taking Clonidine as in his med pack although medicine was discontinued in March. Patient unsure of any of his meds when asked. CT scan in ER was negative. Labs relatively stable except UA. Will switch oral Keflex to Rocephin. Start Eliquis while here. Hold the Clonidine. Obtain MRI tomorrow. Repeat labs in am. 05-28-2018 Patient feels good today, left arm does still remain weak. Is using it more today per patient. Staff reports balance is unsteady when ambulating short distances. Denies dysphagia. No abdominal pain or burning with urination. Vitals stable. Potassium low at 3.2 today, CRP 0.9, WBC within normal limits at 9.4. Will transfer to acute inpatient for CVA. Continue Rocephin for UTI. PT to consult for strengthening and balance. MRI today. 05-29-2018 Patient feels good, is using his left arm but still weaker by exam. Ambulating with walker with PT and staff, still unsteady without assist. Labs stable. Denies nausea/pain/burning with urination. 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 Will proceed with CTA of the head and neck. Continue with Eliquis. Rocephin for UTI. Reevaluate in am. 05-30-14 Patient is feeling good. Left arm weakness present yet, unchanged. Does ambulate with staff and does very well with walker but is resistant to using this. PT encouraging walker use but are working with him to see if cane is feasible. Balance still unsteady at times. CTA of the head and neck negative for acute concerns. Blood pressure remains stable. Will continue with PT and consider discharge home tomorrow. Discussed with patient the stability with using walker and encouraged to do so. Daughter in law aware of concerns with medication compliance/concerns at home and will fill med pack at home on discharge.
[2018-05-31] MEDS: cefTRIAXone 1 GM Vial IVPUSH SCH (07:36)
[2018-05-31] MEDS: Potassium Chloride 10 MEQ Tab.ER PO SCH (07:37)
[2018-05-31] MEDS: atorvaSTATin 20 MG Tab PO SCH (07:37)
[2018-05-31] MEDS: **PTOM** Metoprolol Tartrate 50 MG Tab PO SCH (07:37)
[2018-05-31] MEDS: Ciprofloxacin 0.3% Ophth Soln 5 ML Bottle EYERT SCH (07:38)
[2018-05-31] MEDS: **PTOM** Furosemide 40 MG Tab PO SCH (07:38)
[2018-05-31] MEDS: Cholecalciferol (Vitamin D3) 1,000 Unit Tab PO SCH (07:38)
[2018-05-31] MEDS: Apixaban 5 MG Tab PO SCH (07:38)
[2018-05-31] MEDS: Aspirin 81 MG Tab.EC PO SCH (07:38)
[2018-05-31] MEDS: **PTOM** Losartan 100 MG Tab PO SCH (07:38)
[2018-05-31] MEDS ORDERED: AMLODIPINE 2.5 MG TAB PO SCH (08:00)
[2018-05-31 08:23] VITALS: BP 134/89
--- NOTE | 2018-06-03 20:53 | PCM.DCSUM1 ---
Discharge Summary - Hospital Course Free Text/Narrative:: Patient presented to ER with complaints of left arm weakness. Had been playing cards and felt couldn't use his left arm like usual as it is his dominant hand. Had been noticing increasing weakness for 3 days prior to visit. Stroke protocol done in the ER, CT negative. MRI was done during inpatient stay and found to have embolic infarcts. As medications were reviewed, was found that he had not been taking his Xarelto and Atorvasttin at home. Was started on Eliquis. Physical therapy for strengthening. Transferred to swing bed for ongoing rehab/strengthening as balance is off. 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 Balance is off, unsteady without the support of standby assist or with a walker. He does do very well however with the walker. Left arm does remain weak but improved from admit. Was treated with IV antibiotics for UTI. Will continue his Xarelto at home. Meds will be packaged by daughter due to confusion with him and his in what he should be taking. Follow up with Dr Garcia in 2 weeks. - Patient Instructions Diet: Usual Diet as Tolerated Activity: As Tolerated Other/Special Instructions: use walker at home for ambulation - Discharge Plan *PRESCRIPTION DRUG MONITORING PROGRAM REVIEWED*: Not Applicable *COPY OF PRESCRIPTION DRUG MONITORING REPORT IN PATIENT ROX: Not Applicable Prescriptions/Med Rec: Ciprofloxacin [Ciloxan 0.3% Ophth Soln] 3 drop EYERT TID #1 bottle Home Medications: Home Meds Aspirin [Halfprin] 81 mg PO DAILY 01/05/15 [History] Cholecalciferol (Vitamin D3) [Vitamin D3] 1,000 units PO DAILY 01/05/15 [History ] Cyanocobalamin (Vitamin B-12) [Vitamin B-12] 1 tab PO Q3D 01/05/15 [History] Furosemide [Lasix] 40 mg PO BID 01/05/15 [History] Losartan Potassium 100 mg PO DAILY 01/05/15 [History] Potassium Chloride [Klor-Con 10] 10 meq PO DAILY 01/05/15 [History] cloNIDine [Catapres] 0.1 mg PO BID 01/05/15 [History] Metoprolol Tartrate [Lopressor] 50 mg PO BID 04/06/16 [History] amLODIPine Besylate [Amlodipine Besylate] 5 mg PO DAILY 04/12/17 [History] atorvaSTATin Calcium [Atorvastatin Calcium] 20 mg PO DAILY 04/12/17 [History] Rivaroxaban [Xarelto] 20 mg PO DAILY 05/26/18 [History] Ciprofloxacin [Ciloxan 0.3% Ophth Soln] 3 drop EYERT TID #1 bottle 05/31/18 [Rx] Patient Handouts: Urinary Tract Infection, Adult Forms: ED Department Discharge Referrals: Blair Garcia MD [Primary Care Provider] - (follow up with Dr. Garcia in one week) - General Info Date of Service: 05/31/18 Admission Dx/Problem (Free Text: Weakness Functional Status: Reports: Pain Controlled, Tolerating Diet, Ambulating - Review of Systems General: Reports: Weakness. Denies: Fever, Fatigue HEENT: Reports: No Symptoms Pulmonary: Denies: Shortness of Breath, Cough Cardiovascular: Denies: Chest Pain, Edema, Lightheadedness Gastrointestinal: Reports: No Symptoms Genitourinary: Reports: No Symptoms Musculoskeletal: Reports: No Symptoms Neurological: Reports: Other (left arm weakness, balance concerns) - Patient Data Vitals - Most Recent: Last Vital Signs Temp 98.4 F 05/31/18 08:00 Pulse 88 05/31/18 08:00 Resp 18 05/31/18 08:00 BP 134/89 05/31/18 08:00 Pulse Ox 97 05/31/18 08:00 Weight - Most Recent: 251 lb 5.231 oz Med Orders - Current: Current Medications Discontinued Medications Acetaminophen (Tylenol) 650 mg PO Q4H PRN PRN Reason: Pain (Mild 1-3)/fever Hydrocodone Bitart/Acetaminophen ([place] 325-5 Mg) 1 tab PO Q4H PRN PRN Reason: Pain (moderate 4-6) Amlodipine Besylate (Norvasc) 5 mg PO DAILY [facility] Last Admin: 05/27/18 09:49 Dose: Not Given Amlodipine Besylate (Norvasc) 5 mg PO DAILY [facility] Last Admin: 05/31/18 07:37 Dose: 5 mg Apixaban (Eliquis) 5 mg PO DAILY [facility] Last Admin: 05/31/18 07:38 Dose: 5 mg Aspirin (Halfprin) 81 mg PO DAILY [facility] Last Admin: 05/31/18 07:38 Dose: 81 mg Atorvastatin Calcium (Lipitor) 20 mg PO DAILY [facility] Last Admin: 05/31/18 07:37 Dose: 20 mg Ceftriaxone Sodium (Rocephin) 1 gm IVPUSH DAILY [facility] Last Admin: 05/31/18 07:36 Dose: 1 gm Cephalexin (Keflex) 500 mg PO BID [facility] Stop: 05/31/18 23:59 Last Admin: 05/27/18 09:49 Dose: Not Given Cholecalciferol (Vitamin D3) 1,000 units PO DAILY [facility] Last Admin: 05/31/18 07:38 Dose: 1,000 units Ciprofloxacin (Ciloxan 0.3% Ophth Soln) 0 ml EYERT TID [facility] Last Admin: 05/31/18 07:38 Dose: 1 drop Clonidine HCl (Catapres) 0.1 mg PO BID [facility] Last Admin: 05/27/18 09:49 Dose: Not Given Furosemide (Lasix) 40 mg PO BIDDIURETIC [facility] Last Admin: 05/31/18 07:38 Dose: 40 mg Iopamidol (Isovue-370 (76%)) 100 ml IVPUSH ONETIME ONE Stop: 05/29/18 11:57 Last Admin: 05/29/18 15:08 Dose: Not Given Losartan Potassium (Cozaar) 100 mg PO DAILY [facility] Last Admin: 05/31/18 07:38 Dose: 100 mg Metoprolol Tartrate (Lopressor) 50 mg PO BID [facility] Last Admin: 05/31/18 07:37 Dose: 50 mg Ptom Cyanocobalamin ( Vitamin B-12) 500 Mcg 1 tab PO Q3D [facility] Last Admin: 05/30/18 07:39 Dose: 1 tab Non-Formulary Medication (Rivaroxaban [Xarelto]) 20 mg PO DAILY [facility] Last Admin: 05/27/18 09:49 Dose: Not Given Ptom Amlodipine (5mg Tab) 5 mg PO DAILY [facility] Last Admin: 05/30/18 07:35 Dose: 5 mg Ondansetron HCl (Zofran Odt) 4 mg PO Q4H PRN PRN Reason: nausea, able to take PO Potassium Chloride (Klor-Con 10) 10 meq PO DAILY [facility] Last Admin: 05/31/18 07:37 Dose: 10 meq Sodium Chloride (Saline Flush) 10 ml FLUSH ASDIRECTED PRN PRN Reason: Keep Vein Open - Exam General: Reports: Alert, Oriented HEENT: Reports: Mucous Membr. Moist/[place] Neck: Reports: Supple Lungs: Reports: Clear to Auscultation, Normal Respiratory Effort Cardiovascular: Reports: Regular Rate, Regular Rhythm GI/Abdominal Exam: Normal Bowel Sounds, Soft, Non-Tender Neurological: Reports: Other (left arm grasp is weaker than right, lower extremity strength is equal)
== END 2018-05-31 10:30 | disposition home or self-care (01) | DRG 65 ==
LOC: CC.ED 20:48 → CC.MS 23:30 → UNDOADMOB 23:30 → CC.MS 23:35 → OBSVTOIN 05-28 09:00
PROVIDERS: ADMIT Nurse Practitioner Family; ATTEND Family Medicine
DX: R53.1 Weakness (principal); R53.83 Other fatigue; I63.12 Cerebral infarction due to embolism of basilar artery; N39.0 Urinary tract infection, site not specified; G83.24 Monoplegia of upper limb affecting left nondominant side; R20.0 Anesthesia of skin; R26.2 Difficulty in walking, not elsewhere classified; H54.7 Unspecified visual loss; H91.90 Unspecified hearing loss, unspecified ear; I48.91 Unspecified atrial fibrillation; I50.9 Heart failure, unspecified; E78.00 Pure hypercholesterolemia, unspecified; Z96.659 Presence of unspecified artificial knee joint; R06.02 Shortness of breath; Z88.0 Allergy status to penicillin; Z79.82 Long term (current) use of aspirin; Z79.899 Other long term (current) drug therapy; Z79.01 Long term (current) use of anticoagulants
CPT/HCPCS: 36415 ×2; 70450; 71046; 80048 ×2; 81001; 84484; 85025 ×2; 85610; 86140; 87086; 93005; 99285; A9270 ×21; J0696 ×2; 70496; 70498; 70551; 96374; 96376; 97110-GP; 97112-GP; 97161-GP; 97530-GP; G0378; Q9967

== ENCOUNTER 2018-10-18 08:30 | Inpatient (IN) | payer MEDICARE, OTHER ==
[2018-10-18] MEDS ORDERED: Sodium Chloride 0.9% 10 ML Syringe FLUSH PRN ×2 (10:40)
[2018-10-18] MEDS ORDERED: Acetaminophen 325 MG Tab PO PRN (10:40)
[2018-10-18] MEDS ORDERED: Docusate Sodium 100 MG Cap PO PRN (10:40)
[2018-10-18] MEDS: Metoprolol Tartrate 25 MG Tab PO SCH ×2 (11:43→20:14)
[2018-10-18] MEDS: Furosemide 40 MG Tab PO SCH (16:16)
[2018-10-18] MEDS: Apixaban 5 MG Tab PO SCH (20:13)
[2018-10-19] MEDS: Potassium Chloride 10 MEQ Tab.ER PO SCH (07:45)
[2018-10-19] MEDS: Apixaban 5 MG Tab PO SCH ×2 (07:45→20:03)
[2018-10-19] MEDS: amLODIPine 10 MG Tab PO SCH (07:45)
[2018-10-19] MEDS: atorvaSTATin 20 MG Tab PO SCH (07:45)
[2018-10-19] MEDS: Metoprolol Tartrate 25 MG Tab PO SCH ×2 (07:46→20:03)
[2018-10-19] MEDS: Losartan 100 MG Tab PO SCH (07:47)
[2018-10-19] MEDS: Furosemide 40 MG Tab PO SCH ×2 (07:47→16:07)
[2018-10-19] MEDS: Aspirin 81 MG Tab.EC PO SCH (07:47)
[2018-10-20] MEDS: Furosemide 40 MG Tab PO SCH ×2 (07:46→15:52)
[2018-10-20] MEDS: atorvaSTATin 20 MG Tab PO SCH (07:46)
[2018-10-20] MEDS: Losartan 100 MG Tab PO SCH (07:46)
[2018-10-20] MEDS: Apixaban 5 MG Tab PO SCH ×2 (07:46→19:36)
[2018-10-20] MEDS: Aspirin 81 MG Tab.EC PO SCH (07:47)
[2018-10-20] MEDS: Metoprolol Tartrate 25 MG Tab PO SCH ×2 (07:47→19:37)
[2018-10-20] MEDS: amLODIPine 10 MG Tab PO SCH (07:47)
[2018-10-20] MEDS: Potassium Chloride 10 MEQ Tab.ER PO SCH (07:47)
[2018-10-21 07:41] VITALS: BP 120/85
[2018-10-21] MEDS: amLODIPine 10 MG Tab PO SCH (07:45)
[2018-10-21] MEDS: Aspirin 81 MG Tab.EC PO SCH (07:46)
[2018-10-21] MEDS: Furosemide 40 MG Tab PO SCH (07:46)
[2018-10-21] MEDS: Apixaban 5 MG Tab PO SCH (07:47)
[2018-10-21] MEDS: Metoprolol Tartrate 25 MG Tab PO SCH (07:47)
[2018-10-21] MEDS: Losartan 100 MG Tab PO SCH (07:47)
[2018-10-21] MEDS: Potassium Chloride 10 MEQ Tab.ER PO SCH (07:47)
[2018-10-21] MEDS: atorvaSTATin 20 MG Tab PO SCH (07:47)
--- NOTE | 2018-10-21 11:30 | PCM.DCSUM1 ---
Discharge Summary - Hospital Course Free Text/Narrative:: Homero was admitted to acute inpatient with CVA. Had presented to ER with complaints of left arm weakness. Had similar symptoms back in May when not taking his Xarelto and did recover quite well. Noted 24 hour history of left arm weakness again when presented to ER. Patient had been compliant with his meds as they have been packaged by pharmacy. Initially had left leg weakness but that had resolved by admission. Patient continued to have left arm weakness and was transferred to swing bed status for ongoing physical therapy for strengthening. Labs have remained negative. CT scan of head was negative. Diagnosis: Stroke: No Modified Zapata Scale: Slight Disable;Unable to Carry Out Prev Act.Able to Look After Affairs Modified Zapata Scale Score: 2 - Discharge Data Discharge Date: 10/21/18 Discharge Disposition: Home, Self-Care 01 Condition: Good - Patient Summary/Data Complications: none Consults: Consultations 10/18/18 10:40 Consult to Case Management/Surveillance Investigator [CONS] Routine PT Evaluation and Treatment [CONS] Routine Hospital Course: Patient is improved. Does have more left arm movement this am. Palmar grasp improved but not as strong in comparison to the right. Not using the walker well, states "not able to move it as well as the wheel sticks". More apt to want to use his cane. We will ensure PT demonstrates proper use of the walker to him prior to discharge. We have not felt he is safe to be at home alone and family is adamantly against the group home so family has arranged for grandson to stay with him and his as he is a [employer] caregiver. Will continue on his Xarelto. - Patient Instructions Diet: Usual Diet as Tolerated Activity: As Tolerated - Discharge Plan *PRESCRIPTION DRUG MONITORING PROGRAM REVIEWED*: No *COPY OF PRESCRIPTION DRUG MONITORING REPORT IN PATIENT ROX: No Prescriptions/Med Rec: Metoprolol Tartrate [Lopressor] 12.5 mg PO #60 tablet Home Medications: Home Meds Aspirin [Halfprin] 81 mg PO DAILY 01/05/15 [History] Cholecalciferol (Vitamin D3) [Vitamin D3] 1,000 units PO DAILY 01/05/15 [History ] Cyanocobalamin (Vitamin B-12) [Vitamin B-12] 1 tab PO Q3D 01/05/15 [History] Furosemide [Lasix] 40 mg PO BID 01/05/15 [History] Losartan Potassium 100 mg PO DAILY 01/05/15 [History] Potassium Chloride [Klor-Con 10] 10 meq PO DAILY 01/05/15 [History] amLODIPine Besylate [Amlodipine Besylate] 5 mg PO DAILY 04/12/17 [History] atorvaSTATin Calcium [Atorvastatin Calcium] 20 mg PO DAILY 04/12/17 [History] Rivaroxaban [Xarelto] 20 mg PO DAILY 05/26/18 [History] Metoprolol Tartrate [Lopressor] 12.5 mg PO #60 tablet 10/21/18 [Rx] Referrals: Blair Garcia MD [Primary Care Provider] - (Follow up in one week with Dr. Garcia) - Discharge Summary/Plan Comment DC Time >30 min.: No - General Info Date of Service: 10/21/18 Admission Dx/Problem (Free Text: CVA Functional Status: Reports: Pain Controlled, Tolerating Diet, Ambulating - Review of Systems General: Reports: Weakness (left arm) HEENT: Reports: No Symptoms Pulmonary: Denies: Shortness of Breath, Cough Cardiovascular: Denies: Chest Pain, Edema, Lightheadedness Gastrointestinal: Denies: Abdominal Pain, Nausea, Vomiting Genitourinary: Reports: No Symptoms Musculoskeletal: Reports: No Symptoms Skin: Reports: No Symptoms Neurological: Reports: Weakness (left arm). Denies: Trouble Speaking, Gait Disturbance - Patient Data Vitals - Most Recent: Last Vital Signs Temp 97.4 F 10/21/18 07:39 Pulse 65 10/21/18 07:47 Resp 16 10/21/18 07:39 BP 120/85 10/21/18 07:47 Pulse Ox 96 10/21/18 07:39 Weight - Most Recent: 268 lb 4.8 oz Med Orders - Current: Current Medications Acetaminophen (Tylenol) 650 mg PO Q4H PRN PRN Reason: Pain (Mild 1-3)/fever Amlodipine Besylate (Norvasc) 5 mg PO DAILY [facility] Last Admin: 10/21/18 07:45 Dose: 5 mg Apixaban (Eliquis) 5 mg PO BID [facility] Last Admin: 10/21/18 07:47 Dose: 5 mg Aspirin (Halfprin) 81 mg PO DAILY [facility] Last Admin: 10/21/18 07:46 Dose: 81 mg Atorvastatin Calcium (Lipitor) 20 mg PO DAILY [facility] Last Admin: 10/21/18 07:47 Dose: 20 mg Docusate Sodium (Colace) 100 mg PO BID PRN PRN Reason: Constipation Furosemide (Lasix) 40 mg PO BIDDIURETIC [facility] Last Admin: 10/21/18 07:46 Dose: 40 mg Losartan Potassium (Cozaar) 100 mg PO DAILY [facility] Last Admin: 10/21/18 07:47 Dose: 100 mg Metoprolol Tartrate (Lopressor) 12.5 mg PO 799,1999 [facility] Last Admin: 10/21/18 07:47 Dose: 12.5 mg Potassium Chloride (Klor-Con 10) 10 meq PO DAILY [facility] Last Admin: 10/21/18 07:47 Dose: 10 meq Sodium Chloride (Saline Flush) 10 ml FLUSH ASDIRECTED PRN PRN Reason: Keep Vein Open Discontinued Medications Sodium Chloride (Saline Flush) 10 ml FLUSH ASDIRECTED PRN PRN Reason: Keep Vein Open - Exam General: Reports: Alert, Oriented HEENT: Reports: Mucous Membr. Moist/[place] Neck: Reports: Supple Lungs: Reports: Clear to Auscultation, Normal Respiratory Effort Cardiovascular: Reports: Irregular Rhythm GI/Abdominal Exam: Normal Bowel Sounds, Soft, Non-Tender Extremities: Normal Inspection, No Pedal Edema, Other (Able lift his arm about 30 degrees now, stronger palmar grasp than Sunday. Not yet really using his arm yet. No other neurological deficits noted. ) Neurological: Reports: No New Focal Deficit
== END 2018-10-21 14:48 | disposition home health service (06) | DRG 66 ==
LOC: CC.MS 08:30 → UNDOADMIN 09:48 → CC.MS 09:48
PROVIDERS: ADMIT Family Medicine; ATTEND Family Medicine
DX: I63.12 Cerebral infarction due to embolism of basilar artery (principal); R29.898 Other symptoms and signs involving the musculoskeletal system; I48.2 Chronic atrial fibrillation; G83.24 Monoplegia of upper limb affecting left nondominant side; Z79.82 Long term (current) use of aspirin; Z79.899 Other long term (current) drug therapy; Z79.01 Long term (current) use of anticoagulants
CPT/HCPCS: 97110-GP; 97530-GP; A9270-GY

== ENCOUNTER 2020-01-31 16:29 | Emergency (ER) | payer MEDICARE, OTHER ==
--- NOTE | 2020-01-31 17:10 | EDM.PDOC ---
ED HPI GENERAL MEDICAL PROBLEM - General Chief Complaint: Neuro Symptoms/Deficits Stated Complaint: stroke Time Seen by Provider: 01/31/20 16:29 Source of Information: Reports: Patient, EMS, Family History Limitations: Reports: Altered Mental Status - History of Present Illness INITIAL COMMENTS - FREE TEXT/NARRATIVE: Patient to the emergency department by EMS where at approximately 1500 the patient developed left-sided weakness and became unresponsive. The patient does have a history of atrial fibrillation as well as hypertension coronary artery disease and he has had 2 previous TIAs in the past. The patient's blood sugar by EMS was 128, the patient does have a history of atrial fibrillation and is on Eliquis. The patient is not verbal however he does withdraw to painful stimuli on the right the left side is flaccid he has a NIH stroke scale of 27 however question #3 in question #8 in question #11 are not answered as this cannot be accurately assessed which would potentially put his stroke scale even higher. Onset: Today, Sudden Onset Date: 01/31/20 Onset Time: 15:00 Location: Reports: Other Severity: Severe Improves with: Reports: None Worsens with: Reports: None Associated Symptoms: Reports: Weakness Treatments [employer]: Reports: Other (see below) (none) - Related Data Allergies Allergy/AdvReac Type Severity Reaction Status Date / Time Penicillins Allergy Hives Verified 01/31/20 17:03 Home Meds: Home Meds Aspirin [Halfprin] 81 mg PO DAILY 01/05/15 [History] Cholecalciferol (Vitamin D3) [Vitamin D3] 1,000 units PO DAILY 01/05/15 [History ] Cyanocobalamin (Vitamin B-12) [Vitamin B-12] 1 tab PO ASDIRECTED 01/05/15 [ History] Furosemide [Lasix] 40 mg PO BID 01/05/15 [History] Losartan Potassium 100 mg PO DAILY 01/05/15 [History] Potassium Chloride [Klor-Con 10] 20 meq PO DAILY 01/05/15 [History] amLODIPine Besylate [Amlodipine Besylate] 5 mg PO DAILY 04/12/17 [History] atorvaSTATin Calcium [Atorvastatin Calcium] 20 mg PO DAILY 04/12/17 [History] Apixaban [Eliquis] 5 mg PO BID 01/31/20 [History] cloNIDine [Catapres] 0.1 mg PO BID 01/31/20 [History] Past Medical History HEENT History: Reports: Cataract, Hard of Hearing, Impaired Vision Cardiovascular History: Reports: Afib, Heart Failure, High Cholesterol, SOB on Exertion Respiratory History: Reports: SOB Neurological History: Reports: TIA - Past Surgical History HEENT Surgical History: Reports: Cataract Surgery, Oral Surgery, Tonsillectomy Other HEENT Surgeries/Procedures: DENTURES Musculoskeletal Surgical History: Reports: Knee Replacement, Shoulder Surgery Other Musculoskeletal Surgeries/Procedures:: RIGHT SHOULDER SURGERY Social & Family History - Family History Family Medical History: Noncontributory - Caffeine Use Caffeine Use: Reports: None - Living Situation & Occupation Living situation: Reports: , with Family Occupation: Retired ED ROS GENERAL - Review of Systems Review Of Systems: Unable To Obtain (The patient is nonverbal and does not follow any commands the answers to these questions were obtained from the patient's prior to the event) Reason Not Obtained: unresponsive Constitutional: Reports: No Symptoms. Denies: Fever HEENT: Reports: No Symptoms Respiratory: Denies: Shortness of Breath, Cough Cardiovascular: Reports: No Symptoms. Denies: Chest Pain GI/Abdominal: Reports: No Symptoms. Denies: Abdominal Pain, Nausea, Vomiting Musculoskeletal: Reports: No Symptoms Skin: Reports: No Symptoms Neurological: Reports: Weakness Psychiatric: Reports: No Symptoms ED EXAM, NEURO - Physical Exam Exam: See Below Exam Limited By: Altered Mental Status General Appearance: WD/WN, Obese, Other (The patient's eyes do open to painful stimuli however other than painful stimuli his eyes are closed). No: Alert Eye Exam: Bilateral Eye: PERRL Ears: Normal External Exam Nose: Normal Inspection Throat/Mouth: Normal Inspection, Normal Lips, No Airway Compromise Head Exam: Atraumatic, Normocephalic Neck: Normal Inspection, Supple Respiratory/Chest: No Respiratory Distress, Lungs Clear, Normal Breath Sounds Cardiovascular: Normal Peripheral Pulses, Irregularly Irregular. No: Regular Rate, Rhythm GI/Abdominal: Soft Neurological: No: Alert, CN II-XII Intact Back Exam: Normal Inspection Extremities: Normal Capillary Refill, Pedal Edema, Redness. No: Normal Inspection (The patient's right lower extremity is more swollen than the left and there is redness I suspect that the patient might have a right DVT in his lower extremity) Skin Exam: Warm, Dry, Intact, Normal Color Course - Vital Signs Text/Narrative:: 1644 I spoke to the patient's son (Kirill) who advised to transport the patient to [facility], he also advised after the risk and benefits was explained to him if he is a candidate that he can be given TPA. I did call and talk to the transfer and pumphouse operator at [facility] and she advised that she will get the interventional radiologist Dr. Beltran on the phone 1700 the communicator did speak with the interventional radiologist and advised that the patient needs to be transferred to their facility for intervention. We have also called [facility] and they are checking the weather and will call us back to see if they can fly to get the patient 1718 I did speak to the neurologist Dr. Morgan who I discussed the patient with and went over the NIH stroke scale as well as his past medical history and physical exam as well as all of the lab data and imaging that I have at this point. He also agrees that the patient needs to be transferred to their facility and he also did confirm that as the patient is on Eliquis he is not a candidate for TPA. At this point [facility] has called and advised that they are approximately 40 to 45 minutes out from our facility. 1725 I called and spoke to the patient's son Kirill and advised him of the results of the CT as well as all of the arrangements that have been made and he agrees with all of the treatment plan at this point. The risk-benefit of transfers been advised to the patient's son, the benefit includes evaluation and treatment by an interventional radiologist as well as a neurologist that is not available in the hospital at [facility] the risk includes worsening condition, motor vehicle accident and . His son Kirill accepts this risk Last Recorded V/S: Last Vital Signs Temp 37.0 C 01/31/20 17:55 Pulse 80 01/31/20 18:09 Resp 20 01/31/20 18:09 BP 125/78 01/31/20 18:09 Pulse Ox 99 01/31/20 18:09 - Orders/Labs/Meds Orders: Active Orders 24 hr Category Date Time Status Insert Paulino Catheter [Insert Urinary Catheter] [OM.PC] Care 01/31/20 18:00 Ordered Q24H Urinary Catheter Assessment [RC] ASDIRECTED Care 01/31/20 17:49 Active CXR [Chest 1V Frontal] [CR] Stat Exams 01/31/20 16:50 Taken Head wo Cont [CT] Routine Exams 01/31/20 Taken Labs: Laboratory Tests 01/31/20 01/31/20 01/31/20 Range/Units 17:00 17:00 17:00 WBC 7.7 (5.0-10.0) 10^3/uL RBC 4.91 (4.50-6.00) 10^6/uL Hgb 15.3 (14.0-18.0) g/dL Hct 44.4 (40.0-54.0) % MCV 90.4 (82.0-94.0) fL MCH 31.2 (27.0-32.0) pg MCHC 34.5 (33.0-38.0) g/dL RDW Coeff of Miller 13.8 (11.0-15.0) % Plt Count 217 (150-400) 10^3/uL Neut % (Auto) 71.2 (35-85) % Lymph % (Auto) 19.1 (10-55) % [place] % (Auto) 7.5 (0-16) % Eos % (Auto) 2.1 (0-5) % Baso % (Auto) 0.1 (0-3) % Neut # (Auto) 5.45 (1.80-7.00) 10^3/uL Lymph # (Auto) 1.46 (1.00-4.80) 10^3/uL [place] # (Auto) 0.57 (0.00-0.80) 10^3/uL Eos # (Auto) 0.16 (0.00-0.45) 10^3/uL Baso # (Auto) 0.01 10^3/uL PT 11.4 (9.7-12.3) SEC INR 1.13 (0.92-1.18) APTT 25.9 (23.2-32.3) SEC Sodium 143 (136-145) mEq/L Potassium 3.7 (3.5-5.0) mEq/L Chloride 104 (98-106) mEq/L Carbon Dioxide 31 (21-32) mmol/L BUN 13 (7-18) mg/dL Creatinine 1.2 (0.7-1.3) mg/dL Est Cr Clr Drug Dosing 46.57 mL/min Estimated GFR (MDRD) 58 L (>=60) mL/min Glucose 129 H (75-99) mg/dL Calcium 8.7 (8.4-10.1) mg/dL Total Bilirubin 1.6 H (0.0-1.0) mg/dL AST 23 (15-37) U/L ALT 18 (12-78) U/L Alkaline Phosphatase 94 (46-116) U/L Troponin I < 0.017 (0.00-0.06) ng/mL Total Protein 7.1 (6.4-8.2) g/dL Albumin 3.7 (3.4-5.0) g/dL Urine Color (YELLOW) Urine Appearance (CLEAR) Urine pH (4.5-8.0) Ur Specific Weed (1.003-1.020) Urine Protein (NEGATIVE) mg/dL Urine Glucose (UA) (NEGATIVE) mg/dL Urine Ketones (NEGATIVE) mg/dL Urine Occult Blood (NEGATIVE) Urine Nitrite (NEGATIVE) Urine Bilirubin (NEGATIVE) Urine Urobilinogen (0.2-1.0) EU/dL Ur Leukocyte Esterase (NEGATIVE) 01/31/20 Range/Units 17:48 WBC (5.0-10.0) 10^3/uL RBC (4.50-6.00) 10^6/uL Hgb (14.0-18.0) g/dL Hct (40.0-54.0) % MCV (82.0-94.0) fL MCH (27.0-32.0) pg MCHC (33.0-38.0) g/dL RDW Coeff of Miller (11.0-15.0) % Plt Count (150-400) 10^3/uL Neut % (Auto) (35-85) % Lymph % (Auto) (10-55) % [place] % (Auto) (0-16) % Eos % (Auto) (0-5) % Baso % (Auto) (0-3) % Neut # (Auto) (1.80-7.00) 10^3/uL Lymph # (Auto) (1.00-4.80) 10^3/uL [place] # (Auto) (0.00-0.80) 10^3/uL Eos # (Auto) (0.00-0.45) 10^3/uL Baso # (Auto) 10^3/uL PT (9.7-12.3) SEC INR (0.92-1.18) APTT (23.2-32.3) SEC Sodium (136-145) mEq/L Potassium (3.5-5.0) mEq/L Chloride (98-106) mEq/L Carbon Dioxide (21-32) mmol/L BUN (7-18) mg/dL Creatinine (0.7-1.3) mg/dL Est Cr Clr Drug Dosing mL/min Estimated GFR (MDRD) (>=60) mL/min Glucose (75-99) mg/dL Calcium (8.4-10.1) mg/dL Total Bilirubin (0.0-1.0) mg/dL AST (15-37) U/L ALT (12-78) U/L Alkaline Phosphatase (46-116) U/L Troponin I (0.00-0.06) ng/mL Total Protein (6.4-8.2) g/dL Albumin (3.4-5.0) g/dL Urine Color Yellow (YELLOW) Urine Appearance Clear (CLEAR) Urine pH 7.0 (4.5-8.0) Ur Specific [place] 1.025 H (1.003-1.020) Urine Protein Negative (NEGATIVE) mg/dL Urine Glucose (UA) Negative (NEGATIVE) mg/dL Urine Ketones Negative (NEGATIVE) mg/dL Urine Occult Blood Negative (NEGATIVE) Urine Nitrite Negative (NEGATIVE) Urine Bilirubin Negative (NEGATIVE) Urine Urobilinogen 0.2 (0.2-1.0) EU/dL Ur Leukocyte Esterase Negative (NEGATIVE) Departure - Departure Time of Disposition: 17:47 Disposition: DC/[facility]fer to [facility] 02 Condition: Fair Clinical Impression: Acute CVA (cerebrovascular accident), Left arm weakness, Afib, Atrial fibrillation - Discharge Information *PRESCRIPTION DRUG MONITORING PROGRAM REVIEWED*: Not Applicable *COPY OF PRESCRIPTION DRUG MONITORING REPORT IN PATIENT ROX: Not Applicable Forms: ED Department Discharge Critical Care Note - Critical Care Note Total Time (mins): 60 Comments: See the course notes for details Sepsis Event Note - Focused Exam Vital Signs: Vital Signs Temp Pulse Resp BP Pulse Ox 01/31/20 18:09 80 20 125/78 99 01/31/20 17:55 37.0 C 74 20 146/92 H 98 01/31/20 17:40 74 20 133/86 98 01/31/20 17:20 36.1 C 71 20 137/67 97 01/31/20 17:06 36.6 C 80 20 141/84 H 99 01/31/20 17:05 80 20 140/93 H 99 01/31/20 16:50 71 20 133/92 H 99 Date Exam was Performed: 01/31/20 Time Exam was Performed: 18:35 - Problem List & Annotations (1) Left arm weakness SNOMED Code(s): 224942674 Code(s): R29.898 - OT SYMPTOMS AND SIGNS INVOLVING THE MUSCULOSKELETAL SYSTEM Status: Acute Priority: High Current Visit: Yes (2) Afib, Atrial fibrillation SNOMED Code(s): 18496533 Code(s): I48.91 - UNSPECIFIED ATRIAL FIBRILLATION Status: Chronic Priority: High Current Visit: Yes (3) Acute CVA (cerebrovascular accident) SNOMED Code(s): 250657201, 938118528 Code(s): I63.9 - CEREBRAL INFARCTION, UNSPECIFIED Status: Acute Priority : High Current Visit: Yes - Problem List Review Problem List Initiated/Reviewed/Updated: Yes - My Orders Last 24 Hours: My Active Orders 01/31/20 Head wo Cont [CT] Routine 01/31/20 16:50 CXR [Chest 1V Frontal] [CR] Stat 01/31/20 17:49 Urinary Catheter Assessment [RC] ASDIRECTED 01/31/20 18:00 Insert Paulino Catheter [Insert Urinary Catheter] [OM.PC] Q24H - Assessment/Plan Last 24 Hours: My Active Orders 01/31/20 Head wo Cont [CT] Routine 01/31/20 16:50 CXR [Chest 1V Frontal] [CR] Stat 01/31/20 17:49 Urinary Catheter Assessment [RC] ASDIRECTED 01/31/20 18:00 Insert Paulino Catheter [Insert Urinary Catheter] [OM.PC] Q24H Plan: The patient's past medical history, past surgical history, past family medical history, social history is been reviewed see the nursing notes for details Patient will be transferred from [facility] by air ambulance to [facility] see nursing notes for details
[2020-01-31 17:14] LABS: PTT,PARTIAL THROMBOPLSTIN TIME 25.9 SEC (23.2-32.3)
[2020-01-31 17:17] LABS: CHLORIDE,CL 104 mEq/L (98-106); SODIUM,NA 143 mEq/L (136-145)
[2020-01-31 18:10] VITALS: BP 125/78; PULSE 80
== END 2020-01-31 18:19 ==
LOC: CC.ED 16:29
DX: I63.9 Cerebral infarction, unspecified (principal); G83.24 Monoplegia of upper limb affecting left nondominant side; I48.91 Unspecified atrial fibrillation; I11.0 Hypertensive heart disease with heart failure; I50.9 Heart failure, unspecified; E78.00 Pure hypercholesterolemia, unspecified; Z86.73 Personal history of transient ischemic attack (TIA), and cerebral infarction without residual deficits; I25.10 Atherosclerotic heart disease of native coronary artery without angina pectoris; Z88.0 Allergy status to penicillin; Z79.82 Long term (current) use of aspirin; Z79.899 Other long term (current) drug therapy; Z79.01 Long term (current) use of anticoagulants
CPT/HCPCS: 36415; 51702; 70450; 71045; 80053; 81003; 84484; 85025; 85610; 85730; 93005; 93010; 99284; 99285-25